=== PATIENT | female | born 1930 | race Caucasian/White ===

== ENCOUNTER 2016-12-30 22:39 | Inpatient (IN) | payer OTHER ==
[~2016-12-30] VITALS: Ht 162.6 cm; Wt 90.3 kg
--- NOTE | ~2016-12-30 | EKG ---
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: POOJA : 1930 Requested By: Evens Yun Order Number: [id number] MD: Cas Theodore Measurements Intervals [place] Rate: 71 P: 37 GA: 159 QRS: -5 QRSD: 102 T: 4 QT: 448 QTc: 487 Interpretive Statements Sinus bradycardia Atrial premature complexes Compared to ECG 08/29/2015 18:52:28 T-wave abnormality no longer present Electronically Signed On 12-31-2016 11:02:21 CDT by Cas Theodore [email or web address] <ELECTRONICALLY SIGNED> By: Cas Theodore MD, [facility] 12/31/16 1102 [id number] [id number] Cas Theodore MD, [facility] /EPI
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
--- NOTE | ~2016-12-30 | 2DMMODE ---
[facility] [address] [address] 2 D/M-MODE ECHOCARDIOGRAM Name: LANEY RUSHING Room #: 354-P ADM IN ..#: [id number] Admission: 12/31/16 Attend Phys: Ted Chin MD Discharge: Date of : 30 Date of Service: 01/01/17 1302 Report #: [id number] THIS REPORT FOR: //name// APPROVED REPORT Study performed: 01/01/2017 08:51:29 EXAM: Comprehensive 2D, Doppler, and color-flow Echocardiogram Patient Location: Bedside Room #: 354 Status: routine BSA: 1.95 HR: 49 bpm BP: 134/51 mmHg Other Information Study Quality: Adequate Indications Diabetes Bradycardia DLP. 2D Dimensions RVDd: 34.63 mm LVEF(%): 59.67 (>50%) IVSd: 11.07 (7-11mm) LVOT Diam: 21.69 (18-24mm) LVDd: 50.56 mm PWd: 10.60 (7-11mm) Ascending Ao: 30.44 (22-36mm) LVDs: 34.44 (25-40mm) Aortic Root: 33.41 mm IVC: 18.00 mm Simms's LVEF: 59.67 % Volumes Left Atrial Volume (Systole) Single Plane 4CH: 67.17 mL Single Plane 2CH: 121.37 mL LA ESV Index: 53.00 mL/m2 Mitral Valve E/A Ratio: 1.4 MV Decel. Time: 185.32 ms MV E Max David.: 1.11 m/s MV A David.: 0.82 m/s MV PHT: 53.74 ms IVRT: 101.50 ms [facility] [place] [address] 2 D/M-MODE ECHOCARDIOGRAM Name: LANEY RUSHING Room #: 354-P [facility] IN ..#: [id number] Admission: 12/31/16 Attend Phys: Ted Chin MD Discharge: Date of : 30 Date of Service: 01/01/17 1302 Report #: [id number] Pulmonary Valve PV Peak David.: 0.90 m/s PV Peak Gr.: 3.27 mmHg Pulmonary Vein P Vein S: 0.40 m/s P Vein A: 0.25 m/s P Vein D: 0.33 m/s P Vein A Dur.: 120.0 msec P Vein S/D Ratio: 1.21 Tricuspid Valve TR Peak David.: 2.60 m/s TR Peak Gr.: 26.95 mmHg PA Pressure: 32.00 mmHg Left Ventricle The left ventricle is normal size. There is normal LV segmental wall motion. There is normal left ventricular wall thickness. The left ventricular systolic function is normal. The left ventricular ejection fraction is within the normal range. LVEF is 55-60%. The left ventricular diastolic function is normal. Right Ventricle The right ventricle is normal size. The right ventricular systolic function is normal. Atria Left atrium is dilated. The right atrium size is normal. Aortic Valve Trileaflet, mildly calcified Mild aortic regurgitation. There is no aortic valvular stenosis. Mitral Valve Mild mitral annular calcification Mild mitral regurgitation. No evidence of mitral valve stenosis. Tricuspid Valve The tricuspid valve is normal in structure. There is trace tricuspid regurgitation. The right atrial pressure is estimated at mmHg. There is mild pulmonary hypertension. Estimated PAP 32 mmHg. Pulmonic Valve The pulmonary valve is normal in structure. There is no pulmonic valvular regurgitation. Great Vessels The aortic root is normal in size. IVC is normal in size and [facility] [address] [place] [address] 2 D/M-MODE ECHOCARDIOGRAM Name: LANEY RUSHING Room #: 354-P ADM IN M.R.#: [id number] Admission: 12/31/16 Attend Phys: Ted Chin MD Discharge: Date of : 30 Date of Service: 01/01/17 1302 Report #: [id number] collapses >50% with inspiration. Pericardium There is no pericardial effusion. <Conclusion> The left ventricular systolic function is normal. There is normal LV segmental wall motion. LVEF is 55-60%. Left atrium is dilated. Trileaflet, mildly calcified. Mild aortic regurgitation, no stenosis. Mild mitral annular calcification. Mild mitral regurgitation. Pulmonary artery pressure of 32mmHg There is no pericardial effusion. <ELECTRONICALLY SIGNED> By: Cas Theodore MD, FACC 01/01/171301 01 01 Cas Theodore MD, FAC /INF
--- NOTE | ~2016-12-30 | P ---
[facility] [place] [address] [place] [address] PROCEDURE REPORT Name: LANEY RUSHING Room #: 207-P [facility] IN M.R.#: [id number] Admission: 12/31/16 Attend Phys: Ted Chin MD Discharge: 01/02/17 Date of : 30 Report #: [id number] THIS REPORT FOR: //name// CC: Ted Duttonore Sandor PROCEDURE: Pacemaker implantation. PREOPERATIVE DIAGNOSIS: Sick sinus syndrome. POSTOPERATIVE DIAGNOSIS: Sick sinus syndrome. BRIEF HISTORY: The patient is an 86-year-old with history of paroxysmal AFib, atrial flutter on diltiazem, who presented to the hospital with symptomatic bradycardia. She is here for dual chamber pacemaker implantation. She requires continued diltiazem for her atrial fibrillation. ANESTHESIA: The patient underwent MAC anesthesia with no anesthesia related complications. PROCEDURE: The patient underwent informed consent. We discussed the details of the procedure including the risks, which include but not limited to bleeding, infection, vascular damage, cardiac perforation, pneumothorax. She understood these risks and is willing to proceed. She underwent venography showing patency of the left axillary vein. She received IV antibiotics prior to initiation of the procedure. Next, lidocaine was injected below the level of the left clavicle. Incision was made. A pocket was created over the prepectoral fashion and access was obtained twice the left axillary vein using the extrathoracic approach. Sheaths were positioned using the modified Seldinger techniques. The leads were positioned in the right ventricular apex and right atrial appendage with adequate pacing and sensing thresholds. Leads were sutured to the prepectoral fascia. The device was connected. The pocket was irrigated and then the pocket was closed in 3 layers using 2-0 for the deep layer, 3-0 for the mid layer, 4-0 for the subcuticular. Surgical glue was placed to the skin layer. The patient awoke neurologically and hemodynamically intact. No complications and no significant bleeding. Implanted pacemaker is a [employer] model # [id number], serial #[id number]. The atrial lead was a [employer] model #2088TC, 52 cm, serial #[id number] and the RV lead was a [employer] model #2088TC, 58 cm, serial #[id number]. The atrial lead demonstrated a P-wave of 4.9 millivolts, pacing impedance of 410 ohms and a pacing threshold of 0.75 volts at 0.4 milliseconds. RV lead demonstrated R-wave greater than 12 millivolts, pacing impedance of 630 ohms, pacing threshold 0.5 volts at 0.4 milliseconds. The device was programmed to the DDDR 60-130 mode. CONCLUSIONS: [facility] [address] [place] [address] PROCEDURE REPORT Name: LANEY RUSHING Room #: 207-P [facility] IN M.R.#: [id number] Admission: 12/31/16 Attend Phys: Ted Chin MD Discharge: 01/02/17 Date of : 30 Report #: [id number] 1. Successful dual-chamber pacemaker implantation. 2. Satisfactory atrial and ventricular pacing and sensing thresholds. By: [id number] Huseyin Nelson MD /nt
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
[~2016-12-30 22:39] MED LIST: ARTIFICIAL TEAR15 M6; ASPIRIN EC81 M1 PO; CARDIZEM CD180 MG PO; CARVEDILOL6.25 MG PO; CO Q-10100 MG PO; COREG CR20 MG PO; COZAAR 50 MG TA50 M2 PO; CRESTOR40 MG PO; FISH OIL 1,0001 EAC5 PO; GABAPENTIN100 MG PO; GLUCOPHAGE500 MG PO; GLUMETZA500; HYDROCHLOROTHIA25 M1 PO; LIPITOR40 MG PO; LOSARTAN POTASS50 MG PO; MOBIC15 MG PO; MULTIVITAMINS PO; PRILOSEC 20 MG20 MG PO; SAVAYSA60 MG PO; TRADJENTA5 MG PO; ZYRTEC 10 MG TA10 M1 PO
[2016-12-30 22:42] VITALS: BP 124/75
[2016-12-30 23:09] LABS: HEMATOCRIT 38.6 % (37.0-47.0); HEMOGLOBIN 13.1 gm/dL (12.0-15.0); MCH 32.2 pg (26.0-34.0); MCHC 33.9 g/dL (28.0-37.0); MCV 94.9 fL (80.0-100.0); RBC 4.06 mil/uL (4.20-5.00); RDW 14.8 % (10.5-14.5); WBC 8.8 thou/uL (4.0-11.0)
[2016-12-30] MEDS ORDERED: COUMADIN 5 MG TA5 M1 PO (23:09)
[2016-12-30 23:19] LABS: ANION GAP 7 mmol/L (7-16); BUN 29 mg/dL (7-18); CALCIUM 9.9 mg/dL (8.5-10.1); CHLORIDE 102 mmol/L (98-107); CO2 29 mmol/L (21-32); CREATININE 1.2 mg/dL (0.6-1.0); GLUCOSE 111 mg/dL (74-106); POTASSIUM 4.1 mmol/L (3.5-5.1); SODIUM 138 mmol/L (136-145)
[2016-12-30 23:27] LABS: MAGNESIUM 2.2 mg/dL (1.8-2.4); TROPONIN-I < 0.04 ng/mL (<0.04-0.07)
[2016-12-31] VITALS (7 sets, daily range): BP systolic 108–159; BP diastolic 46–70
[2016-12-31 06:04] LABS: INR 2.5; PROTIME 24.8 Seconds (9.3-11.4)
[2017-01-01 04:25] VITALS: BP 130/89
[2017-01-01 05:19] LABS: HEMATOCRIT 35.7 % (37.0-47.0); MCHC 33.7 g/dL (28.0-37.0); RBC 3.76 mil/uL (4.20-5.00); RDW 14.8 % (10.5-14.5); WBC 7.7 thou/uL (4.0-11.0)
[2017-01-01 05:33] LABS: INR 1.5; PROTIME 15.4 Seconds (9.3-11.4)
[2017-01-01 05:34] LABS: CALCIUM 9.4 mg/dL (8.5-10.1); CREATININE 1.1 mg/dL (0.6-1.0)
[2017-01-01 07:46] VITALS: BP 134/51
[2017-01-01 11:23] VITALS: BP 134/51
[2017-01-01 16:00] VITALS: BP 118/64
[2017-01-01 19:35] VITALS: BP 139/73; BP 94/55
[2017-01-02 00:30] VITALS: BP 158/67
[2017-01-02 04:15] VITALS: BP 148/67
[2017-01-02 08:00] VITALS: BP 142/74
[2017-01-02 09:34] VITALS: BP 148/67
[2017-01-02 11:45] VITALS: BP 113/54
== END 2017-01-02 13:11 | disposition home or self-care (01) | DRG 243 ==
LOC: ER 22:39 → EROBS 12-31 00:22 → 3W 12-31 00:22 → 2N 12-31 00:22 → 3W 12-31 00:48 → 2N 01-01 14:42 → ENTRNSPT 01-01 15:16 → EDTRNSPTSTS 01-01 15:18 → ENTRNSPT 01-02 13:01 → CMPTRNSPT 01-02 13:01 → EDTRNSPTSTS 01-02 13:06 → 2N 01-02 13:11
PROVIDERS: Emergency Medicine; Internal Medicine; Nurse Practitioner Family
PROC: 0JH606Z Insertion of Pacemaker, Dual Chamber into Chest Subcutaneous Tissue and Fascia, Open Approach (ICD-10-PCS; principal; 2017-01-01)
PROC: 02H63JZ Insertion of Pacemaker Lead into Right Atrium, Percutaneous Approach (ICD-10-PCS; principal; 2017-01-01)
PROC: 02HK3JZ Insertion of Pacemaker Lead into Right Ventricle, Percutaneous Approach (ICD-10-PCS; principal; 2017-01-01)
DX: I49.5 Sick sinus syndrome (principal); D68.59 Other primary thrombophilia; I48.92 Unspecified atrial flutter; E86.0 Dehydration; I48.0 Paroxysmal atrial fibrillation; I10 Essential (primary) hypertension; E78.5 Hyperlipidemia, unspecified; E11.40 Type 2 diabetes mellitus with diabetic neuropathy, unspecified; Z90.49 Acquired absence of other specified parts of digestive tract; Z90.710 Acquired absence of both cervix and uterus; Z90.81 Acquired absence of spleen; Z79.01 Long term (current) use of anticoagulants; Z79.899 Other long term (current) drug therapy; Z88.5 Allergy status to narcotic agent; Z82.49 Family history of ischemic heart disease and other diseases of the circulatory system
CPT/HCPCS: 10080; 10081; 62110; 62900; 70005

== ENCOUNTER → 2019-09-10 | Outpatient (CLI) | payer OTHER ==
[~2019-09-10] MED LIST changes: +COUMADIN 5 MG TA5 M1 PO
== END ==
LOC: SJCVC 12:57
PROVIDERS: ATTEND Internal Medicine
DX: Z45.018 Encounter for adjustment and management of other part of cardiac pacemaker (principal); R00.1 Bradycardia, unspecified; R94.31 Abnormal electrocardiogram [ECG] [EKG]; I48.0 Paroxysmal atrial fibrillation; I11.0 Hypertensive heart disease with heart failure; I50.32 Chronic diastolic (congestive) heart failure; E78.5 Hyperlipidemia, unspecified; I71.4 Abdominal aortic aneurysm, without rupture; E11.9 Type 2 diabetes mellitus without complications; G47.33 Obstructive sleep apnea (adult) (pediatric); M19.90 Unspecified osteoarthritis, unspecified site; Z82.49 Family history of ischemic heart disease and other diseases of the circulatory system; Z79.899 Other long term (current) drug therapy